=== PATIENT | female | born 1980 | race Caucasian/White ===

== ENCOUNTER → 2016-11-09 | Outpatient (CLI) | payer OTHER ==
[~2016-11-09] MED LIST: BACL10TA2 PO; CALC500T49 OR; CLAR5TAB7 PO; DULO20CA OR; EFFE75CA75 OR; GABA-279 PO; IBUP600T OR; LISI20TA5 OR; MULTIVIT OR; NUCY100T15 PO; NUCY50TA17 PO; PERC5TAB8 PO; SKEL800T5 OR; SM I100T OR; SYMB80AE IN; TESS100C OR; TIZA4CAP PO; TYLENOL PM PO; VALI10TA OR; VALI2TAB PO; VIT D 2000 OR; VITA100T5 OR; VITACAP8 PO; YAZ3TAB2 OR; nicotine gum PO
== END ==
LOC: M PAIN 08:40
PROVIDERS: ATTEND Nurse Practitioner Family
DX: Z09 Encounter for follow-up examination after completed treatment for conditions other than malignant neoplasm (principal); G89.29 Other chronic pain; M53.82 Other specified dorsopathies, cervical region; M79.1 Myalgia; I10 Essential (primary) hypertension; F41.9 Anxiety disorder, unspecified; F32.9 Major depressive disorder, single episode, unspecified; Z79.1 Long term (current) use of non-steroidal anti-inflammatories (NSAID); Z79.891 Long term (current) use of opiate analgesic; Z79.899 Other long term (current) drug therapy; Z91.410 Personal history of adult physical and sexual abuse

== ENCOUNTER → 2016-11-09 | Outpatient (REF) | payer OTHER ==
[2016-11-09 12:07] LABS: MEAN CORPUSCULAR HEMOGLOBIN 28.2 pg (27.0-33.0); MEAN CORPUSCULAR HGB CONC 32.7 g/dl (32.0-36.5); MEAN CORPUSCULAR VOLUME 86.1 fl (80.0-96.0); RED CELL DISTRIBUTION WIDTH 13.1 % (11.5-14.5); WHITE BLOOD COUNT 5.5 K/mm3 (4.0-10.0)
[2016-11-09 12:35] LABS: ALBUMIN 3.9 GM/DL (3.2-5.2); ALBUMIN/GLOBULIN RATIO 1.15 (1.00-1.93); ALKALINE PHOSPHATASE 70 U/L (45-117); ALT/SGPT 16 U/L (12-78); ANION GAP 12 MEQ/L (8-16); AST/SGOT 16 U/L (15-37); BILIRUBIN,TOTAL 0.2 MG/DL (0.2-1.0); BLOOD UREA NITROGEN 9 MG/DL (7-18); CALCIUM LEVEL 9.3 MG/DL (8.5-10.1); CARBON DIOXIDE LEVEL 23 MEQ/L (21-32); CHLORIDE LEVEL 108 MEQ/L (98-107); CREATININE FOR GFR 0.61 MG/DL (0.55-1.02); GLOMERULAR FILTRATION RATE > 60.0 (>60); GLUCOSE, FASTING 79 MG/DL (70-105); SODIUM LEVEL 143 MEQ/L (136-145); TOTAL PROTEIN 7.3 GM/DL (6.4-8.2)
== END ==
LOC: M LABDRAW1 11:29
PROVIDERS: ATTEND Nurse Practitioner Family
DX: L70.0 Acne vulgaris (principal)

== ENCOUNTER → 2017-01-25 | Outpatient (CLI) | payer OTHER ==
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
== END | disposition home or self-care (01) ==
LOC: M PAIN 08:40
PROVIDERS: ATTEND Nurse Practitioner Family
DX: Z09 Encounter for follow-up examination after completed treatment for conditions other than malignant neoplasm (principal); G89.29 Other chronic pain; M53.82 Other specified dorsopathies, cervical region; M79.1 Myalgia; I10 Essential (primary) hypertension; F43.10 Post-traumatic stress disorder, unspecified; F41.9 Anxiety disorder, unspecified; M75.51 Bursitis of right shoulder; M75.52 Bursitis of left shoulder; Z79.899 Other long term (current) drug therapy

== ENCOUNTER → 2017-01-29 | Outpatient (CLI) | payer OTHER ==
--- NOTE | 2017-01-29 11:04 | REP ---
Renal ultrasound and renal artery Doppler ultrasound: Renal artery Doppler ultrasound: Renal vascular ultrasound: Right Kidney: Extraparenchymal renal artery. Peak renal artery flow velocity 179.4 cm per seconds Peak aortic velocity: 87.4 cm/sec Renal/aortic ratio: 2.1 Intraparenchymal renal arteries. Resistive index: upper pole 0.56 mid pole 0.54 lower pole 0.52 Acceleration time: upper pole 0.044 mid pole 0.044 lower pole 0.039 Left kidney: Extraparenchymal renal artery: Peak renal artery flow velocity: 108.9 cm/sec. Peak aortic velocity: 87.4 cm/sec Renal/aortic ratio: 1.2 Intraparenchymal renal arteries: Resistive index: Upper pole 0.58 mid pole 0.54 lower pole 0.50 Acceleration time: Upper pole 0.047 mid pole 0.036 lower pole 0.033 Impression: There is no evidence of renal artery stenosis by Doppler criteria. Renal ultrasound: The kidneys are normal size. The right kidney measures 11.4 x 4.6 of 5.1 cm. Left kidney measures 11.2 x 4.3 x 5.0 cm. Renal cortical echogenicity is normal bilaterally. There is no hydronephrosis, calculus, mass or cyst in the right on the left kidneys. Impression: Normal renal ultrasound. Signed by Rubén Contreras MD 01/29/2017 10:55 A
== END ==
LOC: M RAD 08:48
PROVIDERS: ATTEND Physician Assistant
DX: I10 Essential (primary) hypertension (principal)

== ENCOUNTER → 2017-01-31 | Outpatient (REF) | payer OTHER ==
[2017-02-07 00:07] LABS: DOPAMINE 316 ug/24 hr (0-510); EPINEPHRINE 2 ug/24 hr (0-20); METANEPHRINE URINE 34 ug/24 hr (45-290); NOREPINEPHRINE 75 ug/24 hr (0-135); NOREPINEPHRINE TOTAL URINE 44 ug/L (Undefined); NORMETANEPHRINE URINE 422 ug/24 hr (82-500)
== END ==
LOC: M SFHCPLAZ 16:05
PROVIDERS: ATTEND Physician Assistant
DX: I10 Essential (primary) hypertension (principal)

== ENCOUNTER → 2017-03-01 | Outpatient (REF) | payer OTHER ==
[2017-03-01 16:13] LABS: ALBUMIN 3.6 GM/DL (3.2-5.2); ALBUMIN/GLOBULIN RATIO 0.95 (1.00-1.93); ALKALINE PHOSPHATASE 56 U/L (45-117); ALT/SGPT 20 U/L (12-78); ANION GAP 10 MEQ/L (8-16); AST/SGOT 15 U/L (15-37); BILIRUBIN,TOTAL 0.2 MG/DL (0.2-1.0); BLOOD UREA NITROGEN 14 MG/DL (7-18); CALCIUM LEVEL 8.7 MG/DL (8.5-10.1); CARBON DIOXIDE LEVEL 24 MEQ/L (21-32); CHLORIDE LEVEL 106 MEQ/L (98-107); CREATININE FOR GFR 0.72 MG/DL (0.55-1.02); GLOMERULAR FILTRATION RATE > 60.0 (>60); GLUCOSE, FASTING 90 MG/DL (70-105); POTASSIUM SERUM 4.3 MEQ/L (3.5-5.1); SODIUM LEVEL 140 MEQ/L (136-145); TOTAL PROTEIN 7.4 GM/DL (6.4-8.2)
== END ==
LOC: M LABDRAW1 13:27
PROVIDERS: ATTEND Physician Assistant
DX: I10 Essential (primary) hypertension (principal)

== ENCOUNTER → 2017-04-12 | Outpatient (CLI) | payer OTHER ==
[~2017-04-12] MED LIST changes: +NUCY100T11 PO; -NUCY100T15 PO; +NUCY50TA14 PO; -NUCY50TA17 PO
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
== END | disposition home or self-care (01) ==
LOC: M PAIN 09:20
PROVIDERS: ATTEND Nurse Practitioner Family
DX: G89.29 Other chronic pain (principal); M53.82 Other specified dorsopathies, cervical region; M79.1 Myalgia; F41.9 Anxiety disorder, unspecified; F43.10 Post-traumatic stress disorder, unspecified; I10 Essential (primary) hypertension; Z79.899 Other long term (current) drug therapy

== ENCOUNTER → 2017-06-28 | Outpatient (CLI) | payer OTHER ==
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
== END ==
LOC: M PAIN 09:20
PROVIDERS: ATTEND Nurse Practitioner Family
DX: M53.82 Other specified dorsopathies, cervical region (principal); M79.1 Myalgia; I10 Essential (primary) hypertension; Z79.891 Long term (current) use of opiate analgesic; Z79.899 Other long term (current) drug therapy

== ENCOUNTER → 2017-08-12 | Outpatient (CLI) | payer OTHER ==
[~2017-08-12] MED LIST changes: +BUPIVACAINE HCL 0.25% 30 ML VIAL As Ordered ONE; +ISOVUE-M 300 61% 15ML VIAL (Q9967) As Ordered ONE; +LIDOCAINE 1% SDV INJ 30 ML VIAL As Ordered ONE; +TRIAMCINOLONE ACETONIDE SUSP 40 MG/ML VIAL (J3301) As Ordered ONE; +diazePAM 5 MG TAB As Ordered ONE; +oxyCODONE 5MG TAB As Ordered ONE
--- NOTE | 2017-08-12 15:50 | REP ---
FACET BLOCK: The images were reviewed with Dr. Bazan. The patient has a history of neck pain. The portable C-Arm was provided in the OR for Dr. Ball for fluoroscopic guidance. Two intraoperative last image hold fluoro spot films were obtained for needle placement verification for bilateral cervical facet injection. The films are on the PACs system and are available for review. 15 seconds of fluoroscopy time was utilized for this procedure. Reviewed by JENNIFER Farrell 08/12/2017 05:02 PEdited and Signed by Rubén Bazan MD 08/13/2017 07:30 P
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
== END ==
LOC: M PAIN 08:30
PROVIDERS: ATTEND Anesthesiology
DX: G89.29 Other chronic pain (principal); M47.812 Spondylosis without myelopathy or radiculopathy, cervical region; F41.9 Anxiety disorder, unspecified; F43.10 Post-traumatic stress disorder, unspecified; I10 Essential (primary) hypertension; Z79.1 Long term (current) use of non-steroidal anti-inflammatories (NSAID); Z79.891 Long term (current) use of opiate analgesic; Z79.899 Other long term (current) drug therapy; Z87.891 Personal history of nicotine dependence
CPT/HCPCS: 64490; 64491; J3301; Q9967

== ENCOUNTER → 2017-08-19 | Outpatient (CLI) | payer OTHER ==
[~2017-08-19] MED LIST changes: -BUPIVACAINE HCL 0.25% 30 ML VIAL As Ordered ONE; -ISOVUE-M 300 61% 15ML VIAL (Q9967) As Ordered ONE; -LIDOCAINE 1% SDV INJ 30 ML VIAL As Ordered ONE; -TRIAMCINOLONE ACETONIDE SUSP 40 MG/ML VIAL (J3301) As Ordered ONE; -diazePAM 5 MG TAB As Ordered ONE; -oxyCODONE 5MG TAB As Ordered ONE
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
== END ==
LOC: M PAIN 08:30
PROVIDERS: ATTEND Nurse Practitioner Family
DX: G89.29 Other chronic pain (principal); M53.82 Other specified dorsopathies, cervical region; M79.1 Myalgia; F41.9 Anxiety disorder, unspecified; F43.10 Post-traumatic stress disorder, unspecified; I10 Essential (primary) hypertension; Z79.891 Long term (current) use of opiate analgesic; Z79.899 Other long term (current) drug therapy; Z87.891 Personal history of nicotine dependence

== ENCOUNTER → 2017-09-30 | Outpatient (REF) | payer OTHER ==
[2017-09-30 14:00] LABS: ALBUMIN 3.8 GM/DL (3.2-5.2); ALBUMIN/GLOBULIN RATIO 0.95 (1.00-1.93); ALKALINE PHOSPHATASE 53 U/L (45-117); ALT/SGPT 18 U/L (12-78); ANION GAP 11 MEQ/L (8-16); AST/SGOT 16 U/L (7-37); BILIRUBIN,TOTAL 0.2 MG/DL (0.2-1.0); BLOOD UREA NITROGEN 12 MG/DL (7-18); CALCIUM LEVEL 9.5 MG/DL (8.5-10.1); CARBON DIOXIDE LEVEL 25 MEQ/L (21-32); CHLORIDE LEVEL 101 MEQ/L (98-107); CHOLESTEROL LEVEL 238 MG/DL (<200); CREATININE FOR GFR 0.89 MG/DL (0.55-1.02); FREE T4 0.97 NG/DL (0.76-1.46); GLOMERULAR FILTRATION RATE > 60.0 (>60); GLUCOSE, FASTING 83 MG/DL (70-105); SODIUM LEVEL 137 MEQ/L (136-145); TOTAL PROTEIN 7.8 GM/DL (6.4-8.2); TRIGLYCERIDES LEVEL 217 MG/DL (<150)
== END ==
LOC: M LABDRAW1 09:03
PROVIDERS: ATTEND Nurse Practitioner Family
DX: F41.9 Anxiety disorder, unspecified (principal); I10 Essential (primary) hypertension

== ENCOUNTER → 2017-10-10 | Outpatient (CLI) | payer OTHER | LOC: M PAIN 09:00 | DX: M53.82 Other specified dorsopathies, cervical region (principal); M79.1 Myalgia; I10 Essential (primary) hypertension; F41.9 Anxiety disorder, unspecified; E55.9 Vitamin D deficiency, unspecified; Z79.891 Long term (current) use of opiate analgesic; Z79.899 Other long term (current) drug therapy; Z87.891 Personal history of nicotine dependence | CPT/HCPCS: G0463 ==

== ENCOUNTER → 2017-12-11 | Outpatient (CLI) | payer OTHER ==
[~2017-12-11] MED LIST changes: -BACL10TA2 PO; +BUPIVACAINE HCL 0.25% 30 ML VIAL As Ordered; -CALC500T49 OR; -CLAR5TAB7 PO; -DULO20CA OR; -EFFE75CA75 OR; -GABA-279 PO; -IBUP600T OR; +ISOVUE-M 300 61% 15ML VIAL (Q9967) As Ordered; +LIDOCAINE 1% SDV INJ 30 ML VIAL As Ordered; -LISI20TA5 OR; -MULTIVIT OR; -NUCY100T11 PO; -NUCY50TA14 PO; -PERC5TAB8 PO; -SKEL800T5 OR; -SM I100T OR; -SYMB80AE IN; -TESS100C OR; -TIZA4CAP PO; +TRIAMCINOLONE ACETONIDE SUSP 40 MG/ML VIAL (J3301) As Ordered; -TYLENOL PM PO; -VALI10TA OR; -VALI2TAB PO; -VIT D 2000 OR; -VITA100T5 OR; -VITACAP8 PO; -YAZ3TAB2 OR; +diazePAM 5 MG TAB As Ordered; -nicotine gum PO; +oxyCODONE 5MG TAB As Ordered
== END ==
LOC: M PAIN 08:30
DX: G89.29 Other chronic pain (principal); M47.812 Spondylosis without myelopathy or radiculopathy, cervical region; F43.10 Post-traumatic stress disorder, unspecified; F41.9 Anxiety disorder, unspecified; I10 Essential (primary) hypertension; Z79.891 Long term (current) use of opiate analgesic; Z79.899 Other long term (current) drug therapy; Z87.891 Personal history of nicotine dependence
CPT/HCPCS: J3301

== ENCOUNTER → 2017-12-30 | Outpatient (CLI) | payer OTHER | LOC: M PAIN 08:45 | DX: M53.82 Other specified dorsopathies, cervical region (principal); M79.1 Myalgia; M54.2 Cervicalgia; F41.9 Anxiety disorder, unspecified; I10 Essential (primary) hypertension; F43.10 Post-traumatic stress disorder, unspecified; Z79.891 Long term (current) use of opiate analgesic; Z79.899 Other long term (current) drug therapy; Z87.891 Personal history of nicotine dependence | CPT/HCPCS: G0463 ==

== ENCOUNTER → 2018-03-21 | Outpatient (CLI) | payer SELFPAY | LOC: M PAIN 13:30 | DX: M53.82 Other specified dorsopathies, cervical region (principal); M79.1 Myalgia; M54.2 Cervicalgia; I10 Essential (primary) hypertension; E55.9 Vitamin D deficiency, unspecified; F41.9 Anxiety disorder, unspecified; F43.10 Post-traumatic stress disorder, unspecified; Z79.891 Long term (current) use of opiate analgesic; Z79.899 Other long term (current) drug therapy; Z87.891 Personal history of nicotine dependence | CPT/HCPCS: G0463 ==

== ENCOUNTER → 2018-11-17 | Outpatient (CLI) | payer SELFPAY ==
[~2018-11-17] MED LIST changes: +BACL10TA2 PO; -BUPIVACAINE HCL 0.25% 30 ML VIAL As Ordered; +CALC500T49 OR; +CLAR5TAB7 PO; +DULO20CA OR; +EFFE75CA75 OR; +GABA-1171 PO; +IBUP600T OR; -ISOVUE-M 300 61% 15ML VIAL (Q9967) As Ordered; -LIDOCAINE 1% SDV INJ 30 ML VIAL As Ordered; +LISI20TA5 OR; +MULTIVIT OR; +NUCY100T11 PO; +NUCY50TA14 PO; +PERC5TAB8 PO; +SKEL800T5 OR; +SM I100T OR; +SYMB80AE IN; +TESS100C OR; +TIZA4CAP PO; -TRIAMCINOLONE ACETONIDE SUSP 40 MG/ML VIAL (J3301) As Ordered; +TYLENOL PM PO; +VALI10TA OR; +VALI2TAB PO; +VIT D 2000 OR; +VITA100T5 OR; +VITACAP8 PO; +YAZ3TAB2 OR; -diazePAM 5 MG TAB As Ordered; +nicotine gum PO; -oxyCODONE 5MG TAB As Ordered
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
== END ==
LOC: M PAIN 08:30
PROVIDERS: ATTEND Nurse Practitioner Family
DX: M53.82 Other specified dorsopathies, cervical region (principal); M79.10 Myalgia, unspecified site; I10 Essential (primary) hypertension; F41.9 Anxiety disorder, unspecified; F43.10 Post-traumatic stress disorder, unspecified; E55.9 Vitamin D deficiency, unspecified; Z79.891 Long term (current) use of opiate analgesic; Z79.899 Other long term (current) drug therapy; Z87.891 Personal history of nicotine dependence

== ENCOUNTER → 2019-01-15 | Outpatient (CLI) | payer SELFPAY ==
[~2019-01-15] MED LIST changes: +CYMB1CAP4 OR; -DULO20CA OR
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
== END ==
LOC: M PAIN 08:45
PROVIDERS: ATTEND Nurse Practitioner Family
DX: M25.562 Pain in left knee (principal); M54.2 Cervicalgia; G89.29 Other chronic pain; Z86.59 Personal history of other mental and behavioral disorders; I10 Essential (primary) hypertension; E55.9 Vitamin D deficiency, unspecified; Z87.891 Personal history of nicotine dependence; Z79.891 Long term (current) use of opiate analgesic; Z79.899 Other long term (current) drug therapy

== ENCOUNTER → 2019-06-11 | Outpatient (CLI) | payer SELFPAY ==
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
== END ==
LOC: M PAIN 08:45
PROVIDERS: ATTEND Nurse Practitioner Family
DX: M47.812 Spondylosis without myelopathy or radiculopathy, cervical region (principal); G89.29 Other chronic pain; Z86.59 Personal history of other mental and behavioral disorders; I10 Essential (primary) hypertension; E55.9 Vitamin D deficiency, unspecified; Z87.891 Personal history of nicotine dependence; Z79.891 Long term (current) use of opiate analgesic; Z79.899 Other long term (current) drug therapy

== ENCOUNTER → 2019-07-23 | Outpatient (CLI) | payer SELFPAY | LOC: M PAIN 10:15 | PROVIDERS: ATTEND Nurse Practitioner Family | DX: M47.812 Spondylosis without myelopathy or radiculopathy, cervical region (principal); G89.29 Other chronic pain; Z86.59 Personal history of other mental and behavioral disorders; I10 Essential (primary) hypertension; E55.9 Vitamin D deficiency, unspecified; Z87.891 Personal history of nicotine dependence; Z79.891 Long term (current) use of opiate analgesic; Z79.899 Other long term (current) drug therapy ==

== ENCOUNTER → 2019-09-03 | Outpatient (CLI) | payer SELFPAY ==
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
== END ==
LOC: M PAIN 09:00
PROVIDERS: ATTEND Nurse Practitioner Family
DX: M47.812 Spondylosis without myelopathy or radiculopathy, cervical region (principal)

== ENCOUNTER 2019-10-19 12:19 | Emergency (ER) | payer SELFPAY ==
[~2019-10-19] VITALS: Ht 162.6 cm; Wt 62.2 kg
[2019-10-19] MEDS ORDERED: MORP-69 (12:57)
[2019-10-19 13:45] LABS: INFLUENZA A AMPLIFICATION NEGATIVE (NEGATIVE); INFLUENZA B AMPLIFICATION NEGATIVE (NEGATIVE)
--- NOTE | 2019-10-19 14:40 | REP ---
CHEST, TWO VIEWS: Two views of the chest are performed. There are no prior studies. Dense consolidation is seen medially in the right lower lobe. This probably represents pneumonic infiltrate. Left lung is clear. The heart is normal in size. IMPRESSION: Consolidation right lower lobe most consistent with pneumonia. Recommend followup to resolution. Electronically Signed by Rubén Bazan MD 10/19/2019 02:52 P
[2019-10-19 14:53] LABS: HEMATOCRIT 37.5 % (36.0-47.0); HEMOGLOBIN 12.1 g/dl (12.0-15.5); MEAN CORPUSCULAR HEMOGLOBIN 31.7 pg (27.0-33.0); MEAN CORPUSCULAR HGB CONC 32.3 g/dl (32.0-36.5); MEAN CORPUSCULAR VOLUME 98.2 fl (80.0-96.0); PLATELET COUNT, AUTOMATED 304 10^3/uL (150-450); RED BLOOD COUNT 3.82 10^6/uL (4.00-5.40); WHITE BLOOD COUNT 20.8 10^3/uL (4.0-10.0)
[2019-10-19 15:17] LABS: ALBUMIN 2.7 GM/DL (3.2-5.2); ALT/SGPT 14 U/L (12-78); AMYLASE 7 U/L (25-115); BILIRUBIN,DIRECT 0.2 MG/DL (0.0-0.2); BILIRUBIN,TOTAL 0.5 MG/DL (0.2-1.0); BLOOD UREA NITROGEN 7 MG/DL (7-18); CALCIUM LEVEL 8.5 MG/DL (8.5-10.1); CARBON DIOXIDE LEVEL 23 MEQ/L (21-32); CHLORIDE LEVEL 104 MEQ/L (98-107); CK-MB VALUE MASS 2.7 NG/ML (<3.6); CPK CREATINE PHOSPHOKINASE 64 U/L (26-192); CREATININE FOR GFR 0.78 MG/DL (0.55-1.30); GLOMERULAR FILTRATION RATE > 60.0 (>58); GLUCOSE, FASTING 106 MG/DL (70-100); LIPASE 53 U/L (73-393); MB/CK RELATIVE INDEX 4.22 (< OR =4); POTASSIUM SERUM 3.6 MEQ/L (3.5-5.1); SODIUM LEVEL 138 MEQ/L (136-145); TOTAL PROTEIN 6.7 GM/DL (6.4-8.2); TROPONIN I < 0.02 NG/ML (< 0.10)
[2019-10-19 15:19] LABS: BASOPHILS 1 % (0-1); LYMPHOCYTES 12 % (16-44); MONOCYTES 8 % (0-5); NEUTROPHILS 79 % (28-66); PLATELET ESTIMATE NORMAL (NORMAL)
[2019-10-19] MEDS ORDERED: ISOVUE-370 76% 100ML VIAL (Q9967) As Ordered ONE ×2 (16:19→17:25)
--- NOTE | 2019-10-19 17:17 | REP ---
Clinical: Contrast infiltration. Technique: Two views of the left elbow. Findings: Intravenous CT contrast material infiltrates the subcutaneous tissues overlying the elbow and humerus. Impression: Intravenous contrast material infiltrates is subcutaneous tissues. Electronically Signed by Tang Castañeda MD 10/19/2019 05:08 P
--- NOTE | 2019-10-19 18:27 | REPVR ---
PROCEDURE INFORMATION: Exam: CT Angiography Chest With Contrast Exam date and time: 10/19/2019 3:56 PM Age: 39 years old Clinical indication: Shortness of breath; Chest pain; Additional info: D dimer 3843.78, reporting chest pain/sob TECHNIQUE: Imaging protocol: Computed tomographic angiography of the chest with intravenous contrast. 3D rendering: MIP and/or 3D reconstructed images were created by the technologist. Radiation optimization: All CT scans at this facility use at least one of these dose optimization techniques: automated exposure control; mA and/or kV adjustment per patient size (includes targeted exams where dose is matched to clinical indication); or iterative reconstruction. Contrast material: ISOVUE 370; Contrast volume: 150 ml; Contrast route: IV; COMPARISON: CR Chest, 2 view PA, Lat 10/19/2019 2:21 PM FINDINGS: Pulmonary arteries: No focal pulmonary artery filling defect to suggest acute pulmonary embolus. Aorta: No thoracic aortic aneurysm or dissection. Lungs: Confluent airspace filling process involving the right lower lobe without central endobronchial lesion. No concerning focal parenchymal lung lesion. Pleural space: Small dependent right pleural effusion. No pneumothorax Mediastinum: Residual thymic tissue is present in the anterior mediastinum. Liver: Small 6 mm anterior right lobe hepatic cyst, incidental. Lymph nodes: Small mediastinal and right hilar lymph nodes are present. These are difficult to measure because of contrast bolus timing. Bones/joints: Bony structures show no acute fracture or destructive process. Soft tissues: Unremarkable. IMPRESSION: 1. No evidence of acute pulmonary embolus. 2. Confluent airspace filling process in the left lower lobe suggesting pneumonia with reactive lymphadenopathy. Followup after treatment is recommended to document resolution Electronically signed by: Zay Hogan On 10/19/2019 18:26:43 PM
[2019-10-19] MEDS ORDERED: LevoFLOXacin IV 750 MG in IV 1 EA IV ONE (19:00)
--- NOTE | 2019-10-19 19:50 | ECGEPIP ---
[facility] - ED Test Date: 2019-10-19 Pat Name: BANDAR HORVATH Department: Room: - Gender: Female [employer]: : [id number] Requested By: Lisa Bangura Order Number: [id number] Reading MD: Sumit Jones Measurements Intervals [place] Rate: 110 P: 79 MN: 131 QRS: -12 QRSD: 96 T: 72 QT: 355 QTc: 481 Interpretive Statements SINUS TACHYCARDIA LEFT ATRIAL ENLARGEMENT INCOMPLETE RIGHT BUNDLE BRANCH BLOCK NONSPECIFIC T-WAVE ABNORMALITY NO PRIORS FOR COMPARISON Electronically Signed on 10-19-2019 19:50:02 EST by Sumit Jones
[2019-10-19] MEDS ORDERED: LEVA750T7 PO (20:26)
[2019-10-19 20:50] VITALS: BP 168/110
--- NOTE | 2019-10-20 12:06 | CR ---
DATE OF CONSULTATION: 10/19/2019 CHIEF COMPLAINT: Left arm swelling. This is a pleasant 39-year-old female that came to the emergency room (ER) for evaluation of chest pain and cough. During the ER evaluation, they ordered CT angiogram for evaluation for pulmonary embolism. Unfortunately, there is contrast extravasation in the left arm. Therefore, I was consulted to rule out compartment syndrome. The patient states that she has no pain in the arm. She does say there is some swelling. The skin is intact. Denies any fevers, chills, nausea or vomiting as a result of the contrast. Denies any numbness or tingling. Complete 10-system review is conducted, pertinent positives and negatives in the history of present illness (HPI). All other systems negative. PHYSICAL EXAMINATION: The patient is awake, alert, and oriented, well-dressed, appropriate affect, breathing normally on room air. Normocephalic, atraumatic. Left upper arm examination: No tenderness to palpation. Full active range of motion of the shoulder, wrist, and elbow without any pain or discomfort. Skin is intact. Radial pulse 2+, regular rate. Sensation intact to light touch, superficial sensory branches of the radial nerve, median nerve, and ulnar nerve. Positive anterior interosseous nerve (AIN), posterior interosseous nerve (PIN), and ulnar motor nerve functions. Full range of motion of the elbow both passive and active without any pain. Mild swelling in the anterior arm. IMAGING: Reviewed. Left elbow demonstrates no acute fracture or dislocation, however, significant contrast extravasation on the x-ray in the anterior arm. DIAGNOSIS: Left arm contrast extravasation. I discussed with the patient that at this point I am not all concerned for compartment syndrome. There should be no deleterious effects from this. At this time, they may resume normal activity without any restrictions with regard to the left arm. She does not require orthopedic followup.
--- NOTE | 2019-10-21 07:36 | ED PDOC ---
Post-Departure Follow-Up jeffery henry faxed formal report of cta chest for fu Lisa Castillo MD Oct 21, 2019 07:36
== END 2019-10-19 20:53 | disposition home or self-care (01) ==
LOC: M ED 12:19
DX: J18.1 Lobar pneumonia, unspecified organism (principal); T80.818A Extravasation of other vesicant agent, initial encounter; X58.XXXA Exposure to other specified factors, initial encounter; Y92.89 Other specified places as the place of occurrence of the external cause; I10 Essential (primary) hypertension; M79.7 Fibromyalgia; Z79.899 Other long term (current) drug therapy
CPT/HCPCS: 71046; 71275; 73070; 80048; 80076; 82150; 82550; 82553; 83690; 84484; 85025; 85379; 87502; 93005; 96365; 96366; 99284; J1956; Q9967

== ENCOUNTER → 2019-11-03 | Outpatient (CLI) | payer BC ==
[~2019-11-03] MED LIST changes: +LEVA750T7 PO; +MORP-69
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
== END ==
LOC: M PAIN 08:45
PROVIDERS: ATTEND Nurse Practitioner Family
DX: M79.18 Myalgia, other site (principal); Z86.59 Personal history of other mental and behavioral disorders; I10 Essential (primary) hypertension; E55.9 Vitamin D deficiency, unspecified; Z87.891 Personal history of nicotine dependence; Z79.891 Long term (current) use of opiate analgesic; Z79.899 Other long term (current) drug therapy

== ENCOUNTER → 2019-12-03 | Outpatient (CLI) | payer BC ==
--- NOTE | 2019-12-03 18:57 | REP ---
PA and lateral chest: Comparison is 10/19/2019. The previous right lower lobe infiltrate has resolved. The lung shin are clear. The cardiac size is normal. The hilda, mediastinum, and skeletal structures are unremarkable. Impression: Negative PA and lateral chest. Electronically Signed by Rubén Contreras MD 12/03/2019 06:48 P
== END ==
LOC: M RAD 17:23
PROVIDERS: ATTEND Nurse Practitioner Family
DX: J18.9 Pneumonia, unspecified organism (principal)

== ENCOUNTER → 2019-12-08 | Outpatient (REF) | payer BC ==
[2019-12-08 13:50] LABS: BASO % 0.8 % (0.0-1.0); EOS # 0.4 10^3/uL (0.0-0.5); HEMATOCRIT 36.2 % (36.0-47.0); HEMOGLOBIN 11.7 g/dl (12.0-15.5); LYMPH # 1.7 10^3/uL (1.5-5.0); LYMPH % 33.8 % (24.0-44.0); MEAN CORPUSCULAR HEMOGLOBIN 31.9 pg (27.0-33.0); MEAN CORPUSCULAR HGB CONC 32.3 g/dl (32.0-36.5); MEAN CORPUSCULAR VOLUME 98.6 fl (80.0-96.0); MONO # 0.3 10^3/uL (0.0-0.8); MONO % 6.6 % (0.0-5.0); NEUTROPHILS # 2.5 10^3/uL (1.5-8.5); NEUTROPHILS % 50.6 % (36.0-66.0); PLATELET COUNT, AUTOMATED 366 10^3/uL (150-450); RED BLOOD COUNT 3.67 10^6/uL (4.00-5.40); WHITE BLOOD COUNT 4.9 10^3/uL (4.0-10.0)
[2019-12-08 14:16] LABS: ALBUMIN 3.7 GM/DL (3.2-5.2); ALT/SGPT 24 U/L (12-78); BILIRUBIN,TOTAL 0.5 MG/DL (0.2-1.0); BLOOD UREA NITROGEN 12 MG/DL (7-18); CALCIUM LEVEL 9.2 MG/DL (8.5-10.1); CARBON DIOXIDE LEVEL 32 MEQ/L (21-32); CHLORIDE LEVEL 99 MEQ/L (98-107); CHOLESTEROL LEVEL 193 MG/DL (<200); CHOLESTEROL RISK RATIO 2.506 (<5); CREATININE FOR GFR 0.84 MG/DL (0.55-1.30); FREE T4 0.85 NG/DL (0.76-1.46); GLOMERULAR FILTRATION RATE > 60.0 (>58); GLUCOSE, FASTING 84 MG/DL (70-100); HDL CHOLESTEROL 77 MG/DL (>40); LDL CHOLESTEROL 97 MG/DL (<100); NON-HDL-C 116 MG/DL; POTASSIUM SERUM 4.6 MEQ/L (3.5-5.1); SODIUM LEVEL 136 MEQ/L (136-145); THYROID STIMULATING HORMONE 0.579 uIU/ML (0.358-3.740); TOTAL PROTEIN 6.9 GM/DL (6.4-8.2); TRIGLYCERIDES LEVEL 93 MG/DL (<150)
== END ==
LOC: M LABDRAW1 12:30
PROVIDERS: ATTEND Nurse Practitioner Family
DX: J18.9 Pneumonia, unspecified organism (principal); I10 Essential (primary) hypertension; E55.9 Vitamin D deficiency, unspecified; F41.9 Anxiety disorder, unspecified

== ENCOUNTER → 2019-12-10 | Outpatient (CLI) | payer BC ==
[~2019-12-10] MED LIST changes: +BUPIVACAINE HCL 0.25% 30 ML VIAL As Ordered ONE; +NORCO, ANEXSIA 5/325MG TABLET (HYDROcodone/ACETAMINOPHEN) As Ordered ONE; +TRIAMCINOLONE ACETONIDE SUSP 40 MG/ML VIAL (J3301) As Ordered ONE; +diazePAM 5 MG TAB As Ordered ONE
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
== END ==
LOC: M PAIN 08:45
PROVIDERS: ATTEND Anesthesiology
DX: M79.18 Myalgia, other site (principal)
CPT/HCPCS: 20552; J3301

== ENCOUNTER → 2019-12-31 | Outpatient (CLI) | payer BC ==
[~2019-12-31] MED LIST changes: -BUPIVACAINE HCL 0.25% 30 ML VIAL As Ordered ONE; -NORCO, ANEXSIA 5/325MG TABLET (HYDROcodone/ACETAMINOPHEN) As Ordered ONE; -TRIAMCINOLONE ACETONIDE SUSP 40 MG/ML VIAL (J3301) As Ordered ONE; -diazePAM 5 MG TAB As Ordered ONE
== END ==
LOC: M PAIN 08:45
PROVIDERS: ATTEND Nurse Practitioner Family
DX: M53.82 Other specified dorsopathies, cervical region (principal); M79.12 Myalgia of auxiliary muscles, head and neck; Z86.59 Personal history of other mental and behavioral disorders; I10 Essential (primary) hypertension; E55.9 Vitamin D deficiency, unspecified; Z87.891 Personal history of nicotine dependence; Z79.891 Long term (current) use of opiate analgesic; Z79.899 Other long term (current) drug therapy

== ENCOUNTER → 2020-01-07 | Outpatient (REF) | payer BC ==
[2020-01-07 17:46] LABS: BLOOD UREA NITROGEN 25 MG/DL (7-18); CALCIUM LEVEL 9.2 MG/DL (8.5-10.1); CARBON DIOXIDE LEVEL 27 MEQ/L (21-32); CHLORIDE LEVEL 94 MEQ/L (98-107); CREATININE FOR GFR 0.99 MG/DL (0.55-1.30); GLOMERULAR FILTRATION RATE > 60.0 (>58); GLUCOSE, FASTING 85 MG/DL (70-100); POTASSIUM SERUM 4.1 MEQ/L (3.5-5.1); SODIUM LEVEL 130 MEQ/L (136-145)
== END ==
LOC: M SFHCPLAZ 14:59
PROVIDERS: ATTEND Nurse Practitioner Family
DX: I10 Essential (primary) hypertension (principal)

== ENCOUNTER → 2020-01-09 | Outpatient (CLI) | payer BC ==
--- NOTE | 2020-01-09 12:23 | REPVR ---
PROCEDURE INFORMATION: Exam: MR Cervical Spine Without Contrast Exam date and time: 01/09/2020 11:12 AM Age: 39 years old Clinical indication: Patient HX: Neck pain and spasms; Additional info: Myalgia of muscle of neck TECHNIQUE: Imaging protocol: Multiplanar magnetic resonance images of the cervical spine without contrast. COMPARISON: MRI-Spine,Cervical without con 12/11/2014 10:36 AM FINDINGS: Vertebrae: Reversal of the normal cervical curvature centered at the C5-C6 level. The mild grade 1 anterolisthesis at C4-C5.The vertebral body heights fairly well maintained. Old Schmorl's nodes along the superior endplate of C6 and C7. No acute compression fracture. Spinal cord: Preservation of cord course, caliber and signal intensity. C2-C3: There is no disc herniation,spinal stenosis,or nerve root impingement. C3-C4: There is no disc herniation, central canal stenosis. Left foraminal stenosis secondary to uncovertebral degenerative change and facet degenerative change. The left C4 root not as well seen as the right C4 root. C4-C5: Mild grade 1 anterolisthesis. Broad bulging/uncovering of the disc. A faint CSF space remains about a normal size cord. There is uncovertebral degenerative change greater on the right. There is severe right foraminal encroachment. The right C5 root is not as well demonstrated as the left C5 root. C5-C6: Disc desiccation with anterior endplate spurring. Broad annular bulging. A faint CSF space remains about the cord. There is uncovertebral degenerative change greater on the right. There is right greater than left moderate to severe neural foraminal stenosis. The right exiting C6 roots not well demonstrated. C6-C7: Disc desiccation with anterior endplate spurring. Annular bulging. A CSF space remains about the cord. Uncovertebral degenerative change on the right with right foraminal stenosis. The right C7 root is not as well seen as the left C7 root. C7-T1: There is no disc herniation,spinal stenosis,or nerve root impingement. Vertebral arteries: Expected flow voids in the vertebral arteries. Soft tissues: No prevertebral soft tissue swelling. IMPRESSION: 1. Degenerative changes most prominent at C4-C5 C5-C6 and C6-C7 progressed since previous study. There is reversal of the cervical curvature centered at C5-C6 and new grade 1 anterolisthesis at C4-C5. 2. At C3-C4, left foraminal stenosis. The left C4 root not as well seen as the right C4 root. 3. At C4-C5, mild grade 1 anterolisthesis. There is severe right foraminal encroachment. The right C5 root is not as well demonstrated as the left C5 root. 4. At C5-C6, broad annular bulging. A faint CSF space remains about the cord. There is right greater than left moderate to severe neural foraminal stenosis. The right exiting C6 roots not well demonstrated. 5. At C6-C7, right foraminal stenosis. The right C7 root is not as well seen as the left C7 root. Electronically signed by: Tang Padgett On 01/09/2020 12:23:17 PM
== END ==
LOC: M RAD 10:29
PROVIDERS: ATTEND Nurse Practitioner Family
DX: M79.7 Fibromyalgia (principal)

== ENCOUNTER → 2020-02-12 | Outpatient (CLI) | payer BC ==
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
== END ==
LOC: M TMPAIN 08:45 → M PAIN 08:45
PROVIDERS: ATTEND Nurse Practitioner Family
DX: M53.82 Other specified dorsopathies, cervical region (principal); M47.812 Spondylosis without myelopathy or radiculopathy, cervical region; I10 Essential (primary) hypertension; Z79.891 Long term (current) use of opiate analgesic; Z79.899 Other long term (current) drug therapy; Z87.891 Personal history of nicotine dependence

== ENCOUNTER → 2020-04-09 | Outpatient (CLI) | payer BC | LOC: M LABSMTC 11:01 | PROVIDERS: ATTEND Anesthesiology | DX: Z01.818 Encounter for other preprocedural examination (principal); Z11.59 Encounter for screening for other viral diseases | CPT/HCPCS: C9803; U0003 ==

== ENCOUNTER → 2020-04-12 | Outpatient (CLI) | payer BC ==
[~2020-04-12] MED LIST changes: +BUPIVACAINE HCL 0.25% 30ML VIAL As Ordered ONE; +ISOVUE-M 300 61% 15ML VIAL As Ordered ONE; +LIDOCAINE 1% SDV 30ML VIAL As Ordered ONE; +TRIAMCINOLONE ACETONIDE SUSP 40 MG/ML VIAL (J3301) As Ordered ONE; +diazePAM 5 MG TAB As Ordered ONE; +oxyCODONE 5MG TAB As Ordered ONE
--- NOTE | 2020-04-12 10:52 | REP ---
Clinical: Facet block. Technique: Fluoroscopic evaluation using portable C-arm technique. Findings: Single AP view of the cervical spine demonstrates catheters overlying the bilateral cervical facets at multiple levels along with injected contrast material. Total fluoroscopic time 13 seconds (0.027 mGy) Impression: Cervical facet block. Electronically Signed by Tang Castañeda MD 04/12/2020 10:43 A
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
== END ==
LOC: M PAIN 09:00
PROVIDERS: ATTEND Anesthesiology
DX: M47.812 Spondylosis without myelopathy or radiculopathy, cervical region (principal); M53.82 Other specified dorsopathies, cervical region
CPT/HCPCS: 64490; 64491; J3301; Q9967

== ENCOUNTER → 2020-04-27 | Outpatient (CLI) | payer BC ==
[~2020-04-27] MED LIST changes: -BUPIVACAINE HCL 0.25% 30ML VIAL As Ordered ONE; -ISOVUE-M 300 61% 15ML VIAL As Ordered ONE; -LIDOCAINE 1% SDV 30ML VIAL As Ordered ONE; -TRIAMCINOLONE ACETONIDE SUSP 40 MG/ML VIAL (J3301) As Ordered ONE; -diazePAM 5 MG TAB As Ordered ONE; -oxyCODONE 5MG TAB As Ordered ONE
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
== END ==
LOC: M PAIN 10:15
PROVIDERS: ATTEND Nurse Practitioner Family
DX: M47.812 Spondylosis without myelopathy or radiculopathy, cervical region (principal); M53.82 Other specified dorsopathies, cervical region

== ENCOUNTER → 2020-05-05 | Outpatient (REF) | payer BC ==
[~2020-05-05] MED LIST changes: +BISO5TAB14; +CHLO125TA; +METH750T2; +SPIR-10
[2020-05-05 17:32] LABS: CALCIUM LEVEL 9.6 MG/DL (8.5-10.1); CREATININE FOR GFR 1.72 MG/DL (0.55-1.30); GLOMERULAR FILTRATION RATE 34.8 (>58); POTASSIUM SERUM 5.3 MEQ/L (3.5-5.1)
== END ==
LOC: M PLALAB 14:37
PROVIDERS: ATTEND Nurse Practitioner Family
DX: I10 Essential (primary) hypertension (principal)

== ENCOUNTER → 2020-05-18 | Outpatient (REF) | payer BC ==
[2020-05-18 19:46] LABS: CALCIUM LEVEL 9.3 MG/DL (8.5-10.1); CREATININE FOR GFR 1.29 MG/DL (0.55-1.30); GLOMERULAR FILTRATION RATE 48.5 (>58); POTASSIUM SERUM 4.4 MEQ/L (3.5-5.1)
== END ==
LOC: M PLALAB 15:07
PROVIDERS: ATTEND Nurse Practitioner Family
DX: E87.8 Other disorders of electrolyte and fluid balance, not elsewhere classified (principal)

== ENCOUNTER → 2020-06-08 | Outpatient (POV) | payer BC | LOC: M PAIN 09:00 | PROVIDERS: ATTEND Nurse Practitioner Family | DX: M47.812 Spondylosis without myelopathy or radiculopathy, cervical region (principal) ==

== ENCOUNTER → 2020-06-20 | Outpatient (CLI) | payer BC ==
[~2020-06-20] MED LIST changes: +BUPIVACAINE HCL 0.25% 30ML VIAL As Ordered ONE; +ISOVUE-M 300 61% 15ML VIAL As Ordered ONE; +LIDOCAINE 1% SDV 30ML VIAL As Ordered ONE; +TRIAMCINOLONE ACETONIDE SUSP 40 MG/ML VIAL (J3301) As Ordered ONE; +diazePAM 5 MG TAB As Ordered ONE; +oxyCODONE 5MG TAB As Ordered ONE
--- NOTE | 2020-07-22 07:29 | REP ---
FACET BLOCK The images were reviewed with Dr. De La Cruz. The portable C-arm was provided in the ER for Dr. Ball for fluoroscopic guidance. Two intraoperative pleural spot films were obtained using last image hold for needle placement verification for bilateral cervical facet injection. The films are on the PACS systems and are available for review. 9 seconds of fluoroscopy time was utilized for this procedure. CRYSTAL
== END ==
LOC: M PAIN 10:08
PROVIDERS: ATTEND Anesthesiology
DX: M47.812 Spondylosis without myelopathy or radiculopathy, cervical region (principal)
CPT/HCPCS: 64490; 64491; 77002; J3301; Q9967

== ENCOUNTER 2020-07-03 19:11 | Emergency (ER) | payer BC ==
[~2020-07-03] VITALS: Ht 162.6 cm; Wt 62.0 kg
[~2020-07-03 19:11] MED LIST changes: -BISO5TAB14; -BUPIVACAINE HCL 0.25% 30ML VIAL As Ordered ONE; -CHLO125TA; -ISOVUE-M 300 61% 15ML VIAL As Ordered ONE; -LIDOCAINE 1% SDV 30ML VIAL As Ordered ONE; -METH750T2; -SPIR-10; -TRIAMCINOLONE ACETONIDE SUSP 40 MG/ML VIAL (J3301) As Ordered ONE; -diazePAM 5 MG TAB As Ordered ONE; -oxyCODONE 5MG TAB As Ordered ONE
[2020-07-03] MEDS ORDERED: BISO5TAB14 (19:27)
[2020-07-03] MEDS ORDERED: SPIR-10 (19:27)
[2020-07-03] MEDS ORDERED: METH750T2 (19:27)
[2020-07-03] MEDS ORDERED: CHLO125TA (19:27)
--- NOTE | 2020-07-03 20:12 | REPVR ---
PROCEDURE INFORMATION: Exam: CT Head Without Contrast Exam date and time: 07/03/2020 7:47 PM Age: 40 years old Clinical indication: Pain; Headache not specified; Additional info: H/a TECHNIQUE: Imaging protocol: Computed tomography of the head without contrast. Radiation optimization: All CT scans at this facility use at least one of these dose optimization techniques: automated exposure control; mA and/or kV adjustment per patient size (includes targeted exams where dose is matched to clinical indication); or iterative reconstruction. COMPARISON: No relevant prior studies available. FINDINGS: Brain: Unremarkable. No hemorrhage. No significant white matter disease. No edema. Ventricles: Unremarkable. No ventriculomegaly. Bones/joints: Unremarkable. No acute fracture. Sinuses: Visualized sinuses are unremarkable. No fluid levels. Mastoid air cells: Visualized mastoid air cells are well aerated. Soft tissues: Unremarkable. IMPRESSION: No acute abnormality. Electronically signed by: Anuj Amaya On 07/03/2020 20:12:17 PM
[2020-07-03] MEDS ORDERED: NS 1,000 ML IV ONE (20:15)
[2020-07-03] MEDS ORDERED: diphenhydrAMINE 50MG/ML VIAL (J1200) IV ONE (20:15)
[2020-07-03] MEDS ORDERED: KETOROLAC 30 MG/ML 1ML VIAL IV ONE (20:15)
[2020-07-03] MEDS ORDERED: ONDANSETRON 4MG/2ML VIAL IV ONE (20:15)
--- NOTE | 2020-07-03 20:50 | REPVR ---
PROCEDURE INFORMATION: Exam: CT Cervical Spine Without Contrast Exam date and time: 07/03/2020 8:18 PM Age: 40 years old Clinical indication: Neck pain; Additional info: Neck pain/headache TECHNIQUE: Imaging protocol: Computed tomography images of the cervical spine without contrast. Radiation optimization: All CT scans at this facility use at least one of these dose optimization techniques: automated exposure control; mA and/or kV adjustment per patient size (includes targeted exams where dose is matched to clinical indication); or iterative reconstruction. COMPARISON: MRI-Spine,Cervical without con 01/09/2020 10:54 AM FINDINGS: Vertebrae: Loss of normal cervical lordosis with straightening of the cervical spine, likely secondary to splinting and/or patient positioning. Grade 1 anterolisthesis of C4, unchanged. No fracture. Discs/Spinal canal/Neural foramina: Degenerative disc disease and facet arthrosis throughout the cervical spine, most severe at C4-C5, C5-C6 and C6-C7. Mild neural foraminal bony encroachment on the left at C3-C4, bilaterally at C4-C5, bilaterally at C5-C6 and on the left at C6-C7. Moderate neural foraminal bony encroachment on the right at C6-C7. No bony spinal stenosis. Soft tissues: Unremarkable. Lungs: Bilateral apical scar. IMPRESSION: 1. Degenerative disc disease and facet arthritis throughout the cervical spine. 2. Grade 1 anterolisthesis of C4, unchanged. 3. No acute fracture. Electronically signed by: Anuj Amaya On 07/03/2020 20:50:25 PM
[2020-07-03 21:50] LABS: BASO % 0.2 % (0.0-1.0); EOS # 0.2 10^3/uL (0.0-0.5); EOS % 1.6 % (0.0-3.0); HEMATOCRIT 36.8 % (36.0-47.0); HEMOGLOBIN 11.9 g/dl (12.0-15.5); LYMPH # 2.5 10^3/uL (1.5-5.0); LYMPH % 20.5 % (24.0-44.0); MEAN CORPUSCULAR HEMOGLOBIN 31.3 pg (27.0-33.0); MEAN CORPUSCULAR HGB CONC 32.3 g/dl (32.0-36.5); MEAN CORPUSCULAR VOLUME 96.8 fl (80.0-96.0); MONO # 0.8 10^3/uL (0.0-0.8); MONO % 6.3 % (0.0-5.0); NEUTROPHILS # 8.6 10^3/uL (1.5-8.5); NEUTROPHILS % 71.2 % (36.0-66.0); PLATELET COUNT, AUTOMATED 355 10^3/uL (150-450); WHITE BLOOD COUNT 12.1 10^3/uL (4.0-10.0)
[2020-07-03 22:02] LABS: BLOOD UREA NITROGEN 28 MG/DL (7-18); CALCIUM LEVEL 9.4 MG/DL (8.5-10.1); CARBON DIOXIDE LEVEL 22 MEQ/L (21-32); CHLORIDE LEVEL 107 MEQ/L (98-107); CK-MB VALUE MASS 5.2 NG/ML (<3.6); CPK CREATINE PHOSPHOKINASE 103 U/L (26-192); CREATININE FOR GFR 1.59 MG/DL (0.55-1.30); FREE T4 0.81 NG/DL (0.76-1.46); GLOMERULAR FILTRATION RATE 38.1 (>58); GLUCOSE, FASTING 95 MG/DL (70-100); MAGNESIUM LEVEL 1.9 MG/DL (1.8-2.4); MB/CK RELATIVE INDEX 5.05 (< OR =4); SODIUM LEVEL 137 MEQ/L (136-145); TROPONIN I < 0.02 NG/ML (< 0.10)
[2020-07-03] MEDS ORDERED: dexameTHASONE 4 MG/ML 1ML VIAL (J1100 PER 1MG) IV ONE (23:00)
[2020-07-03] MEDS ORDERED: PROMETHAZINE INJ 25 MG/ML VIAL (J2550) IV ONE (23:00)
[2020-07-04] MEDS ORDERED: ISOVUE-370 76% 100ML VIAL As Ordered ONE (00:10)
--- NOTE | 2020-07-04 01:20 | REPVR ---
PROCEDURE INFORMATION: Exam: CT Angiography Head With Contrast CT angiography neck with contrast Exam date and time: 07/04/2020 1:05 AM Age: 40 years old Clinical indication: Pain; Headache; Additional info: FRANCOIS with no improvement, neck pain and stiffness TECHNIQUE: Imaging protocol: Computed tomography angiography of the head and neck with intravenous contrast. 3D rendering (Not supervised by radiologist): MIP and/or 3D reconstructed images were created by the technologist. Radiation optimization: All CT scans at this facility use at least one of these dose optimization techniques: automated exposure control; mA and/or kV adjustment per patient size (includes targeted exams where dose is matched to clinical indication); or iterative reconstruction. Contrast material: ISOVUE 370; Contrast volume: 100 ml; Contrast route: INTRAVENOUS (IV); COMPARISON: CT Head without contrast 07/03/2020 7:40 PM FINDINGS: There is no significant stenosis or dissection within the common or internal carotid arteries on either side. Left vertebral artery appears dominant. No significant stenosis or dissection within the vertebral arteries. There is no significant stenosis, occlusion or aneurysmal dilatation within the anterior or posterior intracranial arterial circulation. IMPRESSION: No significant stenosis or dissection within the carotid or vertebral arteries of the neck. No significant stenosis, occlusion or aneurysmal dilatation within the anterior or posterior intracranial arterial circulation. COMMENT: Reference per NASCET criteria for degree of stenosis: Mild: less than 50% stenosis. Moderate: 50-69% stenosis. Severe: 70-94% stenosis. Near occlusion: 95-99% stenosis. Electronically signed by: Juan Avendano On 07/04/2020 01:20:18 AM
[2020-07-04 02:06] VITALS: BP 168/101
--- NOTE | 2020-07-07 16:06 | ECGEPIP ---
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
== END 2020-07-04 02:36 | disposition home or self-care (01) ==
LOC: M ED 19:11
DX: I10 Essential (primary) hypertension (principal); F33.9 Major depressive disorder, recurrent, unspecified; F41.9 Anxiety disorder, unspecified; F43.10 Post-traumatic stress disorder, unspecified; F03.90 Unspecified dementia, unspecified severity, without behavioral disturbance, psychotic disturbance, mood disturbance, and anxiety; Z79.899 Other long term (current) drug therapy
CPT/HCPCS: 70450; 70496; 70498; 72125; 80048; 82550; 82553; 83735; 84439; 84443; 84484; 85025; 93005; 96361; 96374; 96375; 99284; J1100; J1200; J1885; J2405; Q9967

== ENCOUNTER → 2020-07-05 | Outpatient (CLI) | payer BC ==
[~2020-07-05] MED LIST changes: +BISO5TAB14; +CHLO125TA; +METH750T2; +SPIR-10
== END ==
LOC: M PAIN 11:32
PROVIDERS: ATTEND Nurse Practitioner Family
DX: M47.812 Spondylosis without myelopathy or radiculopathy, cervical region (principal)

== ENCOUNTER → 2020-08-02 | Outpatient (REF) | payer BC ==
[2020-08-02 14:59] LABS: ALBUMIN 3.8 GM/DL (3.2-5.2); CALCIUM LEVEL 9.7 MG/DL (8.5-10.1); CREATININE FOR GFR 1.68 MG/DL (0.55-1.30); FREE T4 0.75 NG/DL (0.76-1.46); GLOMERULAR FILTRATION RATE 35.7 (>58); PHOSPHORUS LEVEL 2.8 MG/DL (2.5-4.9); POTASSIUM SERUM 5.6 MEQ/L (3.5-5.1); THYROID STIMULATING HORMONE 1.09 uIU/ML (0.358-3.740); TOTAL 25(OH) VITAMIN D 35.8 NG/ML (30.0-100.0)
[2020-08-02 15:03] LABS: HEMATOCRIT 32.9 % (36.0-47.0); HEMOGLOBIN 10.2 g/dl (12.0-15.5); MEAN CORPUSCULAR HEMOGLOBIN 30.1 pg (27.0-33.0); MEAN CORPUSCULAR VOLUME 97.1 fl (80.0-96.0); PLATELET COUNT, AUTOMATED 334 10^3/uL (150-450); RED BLOOD COUNT 3.39 10^6/uL (4.00-5.40); WHITE BLOOD COUNT 7.3 10^3/uL (4.0-10.0)
[2020-08-02 15:31] LABS: MALB URINE SIEMENS 41.1 MG/L; MAU/CREAT RATIO 21.7 MCG/MG (0.0-30.0)
== END ==
LOC: M SFHCPLAZ 11:06
PROVIDERS: ATTEND Nurse Practitioner Family
DX: I10 Essential (primary) hypertension (principal); R53.83 Other fatigue; E55.9 Vitamin D deficiency, unspecified

== ENCOUNTER → 2020-08-05 | Outpatient (CLI) | payer BC ==
--- NOTE | 2020-08-10 08:09 | REP ---
RENAL ULTRASOUND HISTORY: Chronic kidney disease stage III. TECHNIQUE: Real-time sonographic evaluation of the kidneys is performed. FINDINGS: Kidneys are normal in size and echotexture, right kidney measuring 9.7 x 4.2 x 3.8 cm and left kidney 9.4 x 4.3 x 5.0 cm. There is no hydronephrosis bilaterally. I see no renal mass. There is mild increase in the renal sinus fat bilaterally. The urinary bladder is not distended and not evaluated. IMPRESSION: No hydronephrosis or renal mass bilaterally. MTDD
== END ==
LOC: M RAD 11:00
PROVIDERS: ATTEND Nurse Practitioner Family
DX: N18.30 Chronic kidney disease, stage 3 unspecified (principal)

== ENCOUNTER → 2020-08-05 | Outpatient (REF) | payer BC ==
[2020-08-05 14:23] LABS: CALCIUM LEVEL 9.5 MG/DL (8.5-10.1); CREATININE FOR GFR 1.88 MG/DL (0.55-1.30); GLOMERULAR FILTRATION RATE 31.4 (>58); POTASSIUM SERUM 4.9 MEQ/L (3.5-5.1)
== END ==
LOC: M PLALAB 11:40
PROVIDERS: ATTEND Nurse Practitioner Family
DX: E87.5 Hyperkalemia (principal)

== ENCOUNTER → 2020-08-13 | Outpatient (CLI) | payer BC | LOC: M LABSMTC 11:39 | PROVIDERS: ATTEND Anesthesiology | DX: Z20.828 Contact with and (suspected) exposure to other viral communicable diseases (principal) | CPT/HCPCS: C9803; U0003 ==

== ENCOUNTER → 2020-08-31 | Outpatient (CLI) | payer BC ==
--- NOTE | 2020-08-31 10:29 | REP ---
INDICATION: RENOVASCULAR HTN FILE ROOM. COMPARISON: None. TECHNIQUE: MRA renal arteries performed utilizing precontrast localizing sequences in the axial and coronal planes, followed by 3D mgky-dc-tzzelm MRA imaging with MIP reconstruction images. FINDINGS: A single main renal artery is seen bilaterally. The origin of the main right renal artery is adjacent to the origin of the superior mesenteric artery. There is very mild narrowing at the origin of both main renal arteries. However there is no evidence of significant stenosis bilaterally. The superior mesenteric artery is widely patent. There does appear to be approximately 50% narrowing just distal to the origin of the celiac artery. There is no definite mass or hydronephrosis of either kidney. Incidental note is made of an 8 mm cyst in the right lobe of the liver. A smaller subcentimeter cyst is seen more inferiorly in the right lobe of the liver. IMPRESSION: Very mild narrowing at the origin of both renal arteries. No significant renal artery stenosis. Incidental note made of approximately 50% narrowing of the proximal celiac artery. <Electronically signed by Rubén Bazan > 08/31/20 0051
== END ==
LOC: M RAD 07:35
PROVIDERS: ATTEND Internal Medicine Nephrology
DX: I15.0 Renovascular hypertension (principal)

== ENCOUNTER → 2020-09-19 | Outpatient (REF) | payer BC | LOC: M LAB REF 16:52 | PROVIDERS: ATTEND Internal Medicine Nephrology | DX: N39.0 Urinary tract infection, site not specified (principal) ==

== ENCOUNTER → 2020-11-03 | Outpatient (CLI) | payer BC | LOC: M LABSMTC 13:25 | PROVIDERS: ATTEND Anesthesiology | DX: Z20.822 Contact with and (suspected) exposure to COVID-19 (principal) ==

== ENCOUNTER → 2020-11-08 | Outpatient (CLI) | payer BC ==
[~2020-11-08] MED LIST changes: +diazePAM 5MG TABLET As Ordered ONE
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
== END ==
LOC: M PAIN 08:30
PROVIDERS: ATTEND Anesthesiology
DX: M47.812 Spondylosis without myelopathy or radiculopathy, cervical region (principal); G89.29 Other chronic pain; E55.9 Vitamin D deficiency, unspecified; Z86.59 Personal history of other mental and behavioral disorders; Z87.891 Personal history of nicotine dependence; Z79.891 Long term (current) use of opiate analgesic; Z79.899 Other long term (current) drug therapy

== ENCOUNTER → 2020-11-18 | Outpatient (CLI) | payer BC ==
[~2020-11-18] MED LIST changes: +METH-1165; -METH750T2; -diazePAM 5MG TABLET As Ordered ONE
[2020-11-18 10:39] LABS: ALBUMIN 3.7 GM/DL (3.2-5.2); ALT/SGPT 47 U/L (12-78); BILIRUBIN,TOTAL 0.2 MG/DL (0.2-1.0); BLOOD UREA NITROGEN 17 MG/DL (7-18); CALCIUM LEVEL 9.4 MG/DL (8.5-10.1); CARBON DIOXIDE LEVEL 29 MEQ/L (21-32); CHLORIDE LEVEL 100 MEQ/L (98-107); CHOLESTEROL LEVEL 259 MG/DL (<200); CHOLESTEROL RISK RATIO 3.197 (<5); CREATININE FOR GFR 0.88 MG/DL (0.55-1.30); GLOMERULAR FILTRATION RATE > 60.0 (>58); GLUCOSE, FASTING 104 MG/DL (70-100); HDL CHOLESTEROL 81 MG/DL (>40); LDL CHOLESTEROL 119 MG/DL (<100); NON-HDL-C 178 MG/DL; POTASSIUM SERUM 3.5 MEQ/L (3.5-5.1); SODIUM LEVEL 139 MEQ/L (136-145); TOTAL PROTEIN 7.4 GM/DL (6.4-8.2); TRIGLYCERIDES LEVEL 293 MG/DL (<150)
--- NOTE | 2020-11-18 15:35 | REP ---
INDICATION: RUQ ABD PAIN. COMPARISON: Comparison is made with chest CT imaging from 10/19/2019. Comparison is made with imaging from MR study from August 31, 2020.. TECHNIQUE: Right upper quadrant sonography. FINDINGS: Scanning through the right upper quadrant of the abdomen demonstrates a normal sized and walled gallbladder without evidence of stone or polyp. Common bile duct is normal measuring 0.4 cm in greatest diameter. There is a hepatic cyst in the right lobe of the liver measuring 1.0 cm in diameter. Also noted is a hyperechoic area in the right lobe 1.4 cm in diameter. This is felt to correspond with a benign hemangioma. The cyst is visible on prior MR and CT studies. The CT study shows a 2.3 cm hemangioma elsewhere in the right lobe adjacent to the intrahepatic segment of the vena cava. This area was not seen on today's sonography. Limited views of pancreas show no abnormality. There is no evidence of ascites or right renal abnormality. The right kidney measures 10.5 x 4.9 x 4.8 cm. IMPRESSION: Small benign hemangioma the right lobe of the liver. Small right lobe hepatic cyst. Otherwise negative right upper quadrant sonography. <Electronically signed by Oli De La Cruz > 11/18/20 [id number]
== END ==
LOC: M RAD 08:38
PROVIDERS: ATTEND Nurse Practitioner Family
DX: R10.11 Right upper quadrant pain (principal); I10 Essential (primary) hypertension

== ENCOUNTER → 2020-11-22 | Outpatient (CLI) | payer BC ==
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
== END ==
LOC: M PAIN 09:00
PROVIDERS: ATTEND Nurse Practitioner Family
DX: M53.82 Other specified dorsopathies, cervical region (principal); N18.30 Chronic kidney disease, stage 3 unspecified; F41.9 Anxiety disorder, unspecified; F43.10 Post-traumatic stress disorder, unspecified; I10 Essential (primary) hypertension; E55.9 Vitamin D deficiency, unspecified; L70.9 Acne, unspecified; L65.9 Nonscarring hair loss, unspecified; Z87.891 Personal history of nicotine dependence; Z79.891 Long term (current) use of opiate analgesic; Z79.899 Other long term (current) drug therapy

== ENCOUNTER → 2020-12-14 | Outpatient (CLI) | payer BC | LOC: M LABSMTC 13:03 | PROVIDERS: ATTEND Anesthesiology | DX: Z20.822 Contact with and (suspected) exposure to COVID-19 (principal) ==

== ENCOUNTER → 2020-12-19 | Outpatient (CLI) | payer BC ==
[~2020-12-19] MED LIST changes: +BUPIVACAINE HCL 0.25% 30ML VIAL As Ordered ONE; +LIDOCAINE 1% SDV 30ML VIAL As Ordered ONE
--- NOTE | 2020-12-19 15:44 | REP ---
INDICATION: BILATERAL DIAGNOSTIC CERVICAL FACET. COMPARISON: None. TECHNIQUE: C-arm views cervical spine. FINDINGS: Carroll are seen along the bilateral cervical facet joints, 3 on each side. IMPRESSION: 58 seconds fluoroscopy time utilized. <Electronically signed by Rubén Bazan > 12/19/20 [id number]
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
== END ==
LOC: M PAIN 13:20
PROVIDERS: ATTEND Anesthesiology
DX: M47.812 Spondylosis without myelopathy or radiculopathy, cervical region (principal); E55.9 Vitamin D deficiency, unspecified; Z86.59 Personal history of other mental and behavioral disorders; Z87.891 Personal history of nicotine dependence; Z88.6 Allergy status to analgesic agent; Z88.8 Allergy status to other drugs, medicaments and biological substances; Z79.891 Long term (current) use of opiate analgesic; Z79.899 Other long term (current) drug therapy

== ENCOUNTER → 2021-01-02 | Outpatient (CLI) | payer BC ==
[~2021-01-02] MED LIST changes: -BUPIVACAINE HCL 0.25% 30ML VIAL As Ordered ONE; -LIDOCAINE 1% SDV 30ML VIAL As Ordered ONE
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
== END ==
LOC: M PAIN 10:30
PROVIDERS: ATTEND Nurse Practitioner Family
DX: G89.29 Other chronic pain (principal); M53.82 Other specified dorsopathies, cervical region; F41.9 Anxiety disorder, unspecified; F43.10 Post-traumatic stress disorder, unspecified; I10 Essential (primary) hypertension; E55.9 Vitamin D deficiency, unspecified; N18.30 Chronic kidney disease, stage 3 unspecified; L65.9 Nonscarring hair loss, unspecified; Z87.891 Personal history of nicotine dependence; Z79.899 Other long term (current) drug therapy; Z88.6 Allergy status to analgesic agent; Z88.8 Allergy status to other drugs, medicaments and biological substances

== ENCOUNTER → 2021-01-25 | Outpatient (CLI) | payer BC | LOC: M LABSMTC 11:47 | PROVIDERS: ATTEND Anesthesiology | DX: Z20.822 Contact with and (suspected) exposure to COVID-19 (principal) ==

== ENCOUNTER → 2021-01-30 | Outpatient (CLI) | payer BC ==
[~2021-01-30] MED LIST changes: +BUPIVACAINE HCL 0.25% 30ML VIAL As Ordered ONE; +ISOVUE-M 300 61% 15ML VIAL As Ordered ONE; +LIDOCAINE 1% SDV 30ML VIAL As Ordered ONE; +TRIAMCINOLONE ACETONIDE SUSP 40 MG/ML VIAL (J3301) As Ordered ONE; +diazePAM 5MG TABLET As Ordered ONE; +oxyCODONE 5MG TAB As Ordered ONE
--- NOTE | 2021-01-30 18:39 | REP ---
INDICATION: BILATERAL THERAPEUTIC CERVICAL FACET BLOCK. COMPARISON: 12/19/2020. TECHNIQUE: Single C-arm view cervical spine. FINDINGS: [place] are seen along the bilateral cervical facet joints. IMPRESSION: 21 seconds fluoroscopy time utilized. <Electronically signed by Rubén Bazan > 01/30/21 [id number]
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
== END ==
LOC: M PAIN 13:20
PROVIDERS: ATTEND Anesthesiology
DX: M47.812 Spondylosis without myelopathy or radiculopathy, cervical region (principal); F41.9 Anxiety disorder, unspecified; F43.10 Post-traumatic stress disorder, unspecified; I12.9 Hypertensive chronic kidney disease with stage 1 through stage 4 chronic kidney disease, or unspecified chronic kidney disease; E55.9 Vitamin D deficiency, unspecified; N18.30 Chronic kidney disease, stage 3 unspecified; L65.9 Nonscarring hair loss, unspecified; L70.9 Acne, unspecified; M75.51 Bursitis of right shoulder; M75.52 Bursitis of left shoulder; Z87.891 Personal history of nicotine dependence; Z79.891 Long term (current) use of opiate analgesic; Z79.899 Other long term (current) drug therapy; Z88.6 Allergy status to analgesic agent; Z88.8 Allergy status to other drugs, medicaments and biological substances
CPT/HCPCS: 64490; 64491; J3301

== ENCOUNTER → 2021-02-10 | Outpatient (CLI) | payer BC ==
[~2021-02-10] MED LIST changes: -BUPIVACAINE HCL 0.25% 30ML VIAL As Ordered ONE; -ISOVUE-M 300 61% 15ML VIAL As Ordered ONE; -LIDOCAINE 1% SDV 30ML VIAL As Ordered ONE; -TRIAMCINOLONE ACETONIDE SUSP 40 MG/ML VIAL (J3301) As Ordered ONE; -diazePAM 5MG TABLET As Ordered ONE; -oxyCODONE 5MG TAB As Ordered ONE
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
== END ==
LOC: M PAIN 10:30
PROVIDERS: ATTEND Nurse Practitioner Family
DX: G89.29 Other chronic pain (principal); M79.18 Myalgia, other site; F41.9 Anxiety disorder, unspecified; F43.10 Post-traumatic stress disorder, unspecified; I12.9 Hypertensive chronic kidney disease with stage 1 through stage 4 chronic kidney disease, or unspecified chronic kidney disease; L70.9 Acne, unspecified; E55.9 Vitamin D deficiency, unspecified; N18.30 Chronic kidney disease, stage 3 unspecified; L65.9 Nonscarring hair loss, unspecified; Z87.891 Personal history of nicotine dependence; Z79.899 Other long term (current) drug therapy; Z88.6 Allergy status to analgesic agent; Z88.8 Allergy status to other drugs, medicaments and biological substances

== ENCOUNTER → 2021-02-25 | Outpatient (CLI) | payer BC | LOC: M LABSMTC 11:31 | PROVIDERS: ATTEND Anesthesiology | DX: Z11.52 Encounter for screening for COVID-19 (principal) ==

== ENCOUNTER → 2021-02-28 | Outpatient (REF) | payer BC ==
[2021-02-28 12:07] LABS: ALBUMIN 3.7 GM/DL (3.2-5.2); ALT/SGPT 57 U/L (12-78); BILIRUBIN,TOTAL 0.4 MG/DL (0.2-1.0); BLOOD UREA NITROGEN 7 MG/DL (7-18); CALCIUM LEVEL 9.9 MG/DL (8.5-10.1); CARBON DIOXIDE LEVEL 32 MEQ/L (21-32); CHLORIDE LEVEL 100 MEQ/L (98-107); CHOLESTEROL LEVEL 244 MG/DL (<200); CHOLESTEROL RISK RATIO 2.939 (<5); CREATININE FOR GFR 0.74 MG/DL (0.55-1.30); GLOMERULAR FILTRATION RATE > 60.0 (>58); GLUCOSE, FASTING 101 MG/DL (70-100); HDL CHOLESTEROL 83 MG/DL (>40); LDL CHOLESTEROL 128 MG/DL (<100); NON-HDL-C 161 MG/DL; POTASSIUM SERUM 3.9 MEQ/L (3.5-5.1); SODIUM LEVEL 138 MEQ/L (136-145); TOTAL PROTEIN 7.2 GM/DL (6.4-8.2); TRIGLYCERIDES LEVEL 165 MG/DL (<150)
== END ==
LOC: M PLALAB 10:55
PROVIDERS: ATTEND Nurse Practitioner Family
DX: E78.00 Pure hypercholesterolemia, unspecified (principal)

== ENCOUNTER → 2021-03-02 | Outpatient (CLI) | payer BC ==
[~2021-03-02] MED LIST changes: +BUPIVACAINE HCL 0.25% 10ML VIAL As Ordered ONE; +BUPIVACAINE HCL 0.25% 30ML VIAL As Ordered ONE; +TRIAMCINOLONE ACETONIDE SUSP 40 MG/ML VIAL (J3301) As Ordered ONE; +diazePAM 5MG TABLET As Ordered ONE; +oxyCODONE 5MG TAB As Ordered ONE
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
== END ==
LOC: M PAIN 10:40
PROVIDERS: ATTEND Anesthesiology
DX: M79.18 Myalgia, other site (principal); F41.9 Anxiety disorder, unspecified; F43.10 Post-traumatic stress disorder, unspecified; I10 Essential (primary) hypertension; L70.9 Acne, unspecified; E55.9 Vitamin D deficiency, unspecified; N18.30 Chronic kidney disease, stage 3 unspecified; L65.9 Nonscarring hair loss, unspecified; M75.51 Bursitis of right shoulder; M75.52 Bursitis of left shoulder; Z87.891 Personal history of nicotine dependence; Z79.891 Long term (current) use of opiate analgesic; Z79.899 Other long term (current) drug therapy; Z88.6 Allergy status to analgesic agent; Z88.8 Allergy status to other drugs, medicaments and biological substances
CPT/HCPCS: 20552; J3301

== ENCOUNTER → 2021-03-16 | Outpatient (CLI) | payer BC ==
[~2021-03-16] MED LIST changes: -BUPIVACAINE HCL 0.25% 10ML VIAL As Ordered ONE; -BUPIVACAINE HCL 0.25% 30ML VIAL As Ordered ONE; -TRIAMCINOLONE ACETONIDE SUSP 40 MG/ML VIAL (J3301) As Ordered ONE; -diazePAM 5MG TABLET As Ordered ONE; -oxyCODONE 5MG TAB As Ordered ONE
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
== END ==
LOC: M PAIN 10:30
PROVIDERS: ATTEND Nurse Practitioner Family
DX: G89.29 Other chronic pain (principal); M79.18 Myalgia, other site; F41.9 Anxiety disorder, unspecified; F43.10 Post-traumatic stress disorder, unspecified; I12.9 Hypertensive chronic kidney disease with stage 1 through stage 4 chronic kidney disease, or unspecified chronic kidney disease; L70.9 Acne, unspecified; E55.9 Vitamin D deficiency, unspecified; N18.30 Chronic kidney disease, stage 3 unspecified; L65.9 Nonscarring hair loss, unspecified; M75.51 Bursitis of right shoulder; M75.52 Bursitis of left shoulder; Z87.891 Personal history of nicotine dependence; Z79.891 Long term (current) use of opiate analgesic; Z79.899 Other long term (current) drug therapy; Z88.6 Allergy status to analgesic agent; Z88.8 Allergy status to other drugs, medicaments and biological substances

== ENCOUNTER → 2021-05-09 | Outpatient (CLI) | payer BC | LOC: M PLAIMG 10:26 | PROVIDERS: ATTEND Family Medicine | DX: R07.81 Pleurodynia (principal) ==

== ENCOUNTER → 2021-05-15 | Outpatient (REF) | payer BC | LOC: M LAB REF 17:12 | PROVIDERS: ATTEND Internal Medicine Nephrology | DX: I12.9 Hypertensive chronic kidney disease with stage 1 through stage 4 chronic kidney disease, or unspecified chronic kidney disease (principal); E83.42 Hypomagnesemia ==

== ENCOUNTER → 2021-06-16 | Outpatient (CLI) | payer BC | LOC: M PAIN 10:30 | PROVIDERS: ATTEND Anesthesiology | DX: M79.18 Myalgia, other site (principal); M54.2 Cervicalgia; M50.10 Cervical disc disorder with radiculopathy, unspecified cervical region; F41.9 Anxiety disorder, unspecified; F43.10 Post-traumatic stress disorder, unspecified; L70.9 Acne, unspecified; E55.9 Vitamin D deficiency, unspecified; N18.30 Chronic kidney disease, stage 3 unspecified; L65.9 Nonscarring hair loss, unspecified; M75.51 Bursitis of right shoulder; M75.52 Bursitis of left shoulder; Z79.891 Long term (current) use of opiate analgesic; Z79.899 Other long term (current) drug therapy; Z87.891 Personal history of nicotine dependence; Z88.6 Allergy status to analgesic agent; Z88.8 Allergy status to other drugs, medicaments and biological substances ==

== ENCOUNTER → 2021-07-12 | Outpatient (CLI) | payer BC | LOC: M LABSMTC 11:46 | PROVIDERS: ATTEND Anesthesiology | DX: Z11.52 Encounter for screening for COVID-19 (principal) ==

== ENCOUNTER → 2021-07-17 | Outpatient (CLI) | payer BC ==
[~2021-07-17] MED LIST changes: +BUPIVACAINE HCL 0.25% 10ML VIAL As Ordered ONE; +BUPIVACAINE HCL 0.25% 30ML VIAL As Ordered ONE; +TRIAMCINOLONE ACETONIDE SUSP 40 MG/ML VIAL (J3301) As Ordered ONE; +diazePAM 5MG TABLET As Ordered ONE; +oxyCODONE 5MG TAB As Ordered ONE
== END ==
LOC: M PAIN 14:00
PROVIDERS: ATTEND Anesthesiology
DX: M79.18 Myalgia, other site (principal); F41.9 Anxiety disorder, unspecified; F43.10 Post-traumatic stress disorder, unspecified; I12.9 Hypertensive chronic kidney disease with stage 1 through stage 4 chronic kidney disease, or unspecified chronic kidney disease; N18.30 Chronic kidney disease, stage 3 unspecified; E55.9 Vitamin D deficiency, unspecified; L70.9 Acne, unspecified; Z87.891 Personal history of nicotine dependence; Z79.899 Other long term (current) drug therapy; Z79.891 Long term (current) use of opiate analgesic; Z88.6 Allergy status to analgesic agent; Z88.8 Allergy status to other drugs, medicaments and biological substances
CPT/HCPCS: 20553; J3301

== ENCOUNTER → 2021-08-02 | Outpatient (CLI) | payer BC ==
[~2021-08-02] MED LIST changes: -BUPIVACAINE HCL 0.25% 10ML VIAL As Ordered ONE; -BUPIVACAINE HCL 0.25% 30ML VIAL As Ordered ONE; -TRIAMCINOLONE ACETONIDE SUSP 40 MG/ML VIAL (J3301) As Ordered ONE; -diazePAM 5MG TABLET As Ordered ONE; -oxyCODONE 5MG TAB As Ordered ONE
--- NOTE | 2021-08-02 11:24 | REP ---
INDICATION: DETERMINE PROCEDURE. COMPARISON: None. TECHNIQUE: Three views. 11.6 seconds of fluoroscopy time is reported. FINDINGS: A sequence of 3 last image hold fluoroscopically obtained spot radiographs of the cervical spine document needle position. IMPRESSION: Procedural imaging. <Electronically signed by Oli De La Cruz > 08/02/21 [id number]
== END ==
LOC: M PAIN 10:00
PROVIDERS: ATTEND Anesthesiology
DX: M47.812 Spondylosis without myelopathy or radiculopathy, cervical region (principal); G89.29 Other chronic pain; M48.02 Spinal stenosis, cervical region; M43.12 Spondylolisthesis, cervical region; E55.9 Vitamin D deficiency, unspecified; Z86.59 Personal history of other mental and behavioral disorders; Z87.891 Personal history of nicotine dependence; Z88.6 Allergy status to analgesic agent; Z88.8 Allergy status to other drugs, medicaments and biological substances; Z79.891 Long term (current) use of opiate analgesic; Z79.899 Other long term (current) drug therapy

== ENCOUNTER → 2021-08-08 | Outpatient (CLI) | payer BC ==
[2021-08-08 15:57] LABS: ALBUMIN 3.6 GM/DL (3.2-5.2); ALT/SGPT 42 U/L (12-78); BILIRUBIN,TOTAL 0.3 MG/DL (0.2-1.0); BLOOD UREA NITROGEN 12 MG/DL (7-18); CALCIUM LEVEL 9.2 MG/DL (8.5-10.1); CARBON DIOXIDE LEVEL 30 MEQ/L (21-32); CHLORIDE LEVEL 99 MEQ/L (98-107); CREATININE FOR GFR 0.86 MG/DL (0.55-1.30); GLOMERULAR FILTRATION RATE > 60.0 (>58); GLUCOSE, FASTING 92 MG/DL (70-100); POTASSIUM SERUM 3.5 MEQ/L (3.5-5.1); SODIUM LEVEL 137 MEQ/L (136-145); TOTAL PROTEIN 7.1 GM/DL (6.4-8.2)
[2021-08-08 16:07] LABS: TOTAL 25(OH) VITAMIN D 26.6 NG/ML (30.0-100.0)
== END ==
LOC: M PLALAB 13:10
PROVIDERS: ATTEND Nurse Practitioner Family
DX: I12.9 Hypertensive chronic kidney disease with stage 1 through stage 4 chronic kidney disease, or unspecified chronic kidney disease (principal)

== ENCOUNTER → 2021-09-15 | Outpatient (REF) | payer BC | LOC: M SFHCPLAZ 13:12 | PROVIDERS: ATTEND Physician Assistant | DX: R09.89 Other specified symptoms and signs involving the circulatory and respiratory systems (principal) ==

== ENCOUNTER → 2021-11-15 | Outpatient (REF) | payer BC | LOC: M LAB REF 17:18 | PROVIDERS: ATTEND Internal Medicine Nephrology | DX: I12.9 Hypertensive chronic kidney disease with stage 1 through stage 4 chronic kidney disease, or unspecified chronic kidney disease (principal); E83.42 Hypomagnesemia ==

== ENCOUNTER → 2021-11-24 | Outpatient (CLI) | payer BC | LOC: M PAIN 10:30 | PROVIDERS: ATTEND Anesthesiology | DX: M47.812 Spondylosis without myelopathy or radiculopathy, cervical region (principal); F41.9 Anxiety disorder, unspecified; F43.10 Post-traumatic stress disorder, unspecified; I12.9 Hypertensive chronic kidney disease with stage 1 through stage 4 chronic kidney disease, or unspecified chronic kidney disease; E55.9 Vitamin D deficiency, unspecified; L70.9 Acne, unspecified; N18.30 Chronic kidney disease, stage 3 unspecified; L65.9 Nonscarring hair loss, unspecified; Z87.891 Personal history of nicotine dependence; Z79.899 Other long term (current) drug therapy; Z79.891 Long term (current) use of opiate analgesic; Z88.6 Allergy status to analgesic agent; Z88.8 Allergy status to other drugs, medicaments and biological substances ==

== ENCOUNTER → 2022-05-24 | Outpatient (CLI) | payer BC | LOC: M LABSMTC 11:15 | PROVIDERS: ATTEND Anesthesiology | DX: Z20.822 Contact with and (suspected) exposure to COVID-19 (principal) ==

== ENCOUNTER → 2022-05-28 | Outpatient (CLI) | payer BC ==
[~2022-05-28] MED LIST changes: +BUPIVACAINE HCL 0.25% 30ML VIAL As Ordered ONE; +ISOVUE-M 300 61% 15ML VIAL As Ordered ONE; +LIDOCAINE 1% SDV 30ML VIAL As Ordered ONE
== END ==
LOC: M PAIN 13:30
PROVIDERS: ATTEND Anesthesiology
DX: M47.812 Spondylosis without myelopathy or radiculopathy, cervical region (principal); F41.9 Anxiety disorder, unspecified; F43.10 Post-traumatic stress disorder, unspecified; M54.2 Cervicalgia; I12.9 Hypertensive chronic kidney disease with stage 1 through stage 4 chronic kidney disease, or unspecified chronic kidney disease; M75.52 Bursitis of left shoulder; M75.51 Bursitis of right shoulder; L70.9 Acne, unspecified; E55.9 Vitamin D deficiency, unspecified; N18.30 Chronic kidney disease, stage 3 unspecified; L65.9 Nonscarring hair loss, unspecified; Z88.8 Allergy status to other drugs, medicaments and biological substances; Z79.891 Long term (current) use of opiate analgesic; Z79.899 Other long term (current) drug therapy; Z87.891 Personal history of nicotine dependence
CPT/HCPCS: 64493; 64494; Q9967

== ENCOUNTER → 2022-07-11 | Outpatient (CLI) | payer BC ==
[~2022-07-11] MED LIST changes: -BUPIVACAINE HCL 0.25% 30ML VIAL As Ordered ONE; -ISOVUE-M 300 61% 15ML VIAL As Ordered ONE; -LIDOCAINE 1% SDV 30ML VIAL As Ordered ONE
[2022-07-11 16:30] LABS: ALBUMIN 3.8 GM/DL (3.2-5.2); ALT/SGPT 58 U/L (12-78); BILIRUBIN,TOTAL 0.4 MG/DL (0.2-1.0); BLOOD UREA NITROGEN 10 MG/DL (7-18); CALCIUM LEVEL 9.2 MG/DL (8.5-10.1); CARBON DIOXIDE LEVEL 30 MEQ/L (21-32); CHLORIDE LEVEL 98 MEQ/L (98-107); CHOLESTEROL LEVEL 251 MG/DL (<200); CHOLESTEROL RISK RATIO 3.861 (<5); CREATININE FOR GFR 0.78 MG/DL (0.55-1.30); GLOMERULAR FILTRATION RATE > 60.0 (>58); GLUCOSE, FASTING 88 MG/DL (70-100); HDL CHOLESTEROL 65 MG/DL (>40); LDL CHOLESTEROL 140 MG/DL (<100); NON-HDL-C 186 MG/DL; POTASSIUM SERUM 3.7 MEQ/L (3.5-5.1); SODIUM LEVEL 133 MEQ/L (136-145); TOTAL PROTEIN 7.4 GM/DL (6.4-8.2); TRIGLYCERIDES LEVEL 228 MG/DL (<150)
[2022-07-11 16:59] LABS: TOTAL 25(OH) VITAMIN D 29.7 NG/ML (30.0-100.0)
== END ==
LOC: M PLALAB 13:06
PROVIDERS: ATTEND Nurse Practitioner Adult Health
DX: I12.9 Hypertensive chronic kidney disease with stage 1 through stage 4 chronic kidney disease, or unspecified chronic kidney disease (principal); N18.9 Chronic kidney disease, unspecified

== ENCOUNTER → 2022-07-20 | Outpatient (CLI) | payer BC | LOC: M PAIN 10:15 | PROVIDERS: ATTEND Anesthesiology | DX: G89.29 Other chronic pain (principal); M47.812 Spondylosis without myelopathy or radiculopathy, cervical region; M54.2 Cervicalgia; F41.9 Anxiety disorder, unspecified; F43.10 Post-traumatic stress disorder, unspecified; I12.9 Hypertensive chronic kidney disease with stage 1 through stage 4 chronic kidney disease, or unspecified chronic kidney disease; M75.51 Bursitis of right shoulder; M75.52 Bursitis of left shoulder; L70.9 Acne, unspecified; E55.9 Vitamin D deficiency, unspecified; N18.30 Chronic kidney disease, stage 3 unspecified; L65.9 Nonscarring hair loss, unspecified; Z87.891 Personal history of nicotine dependence; Z79.899 Other long term (current) drug therapy; Z79.891 Long term (current) use of opiate analgesic; Z88.6 Allergy status to analgesic agent; Z88.8 Allergy status to other drugs, medicaments and biological substances ==

== ENCOUNTER → 2022-12-24 | Outpatient (CLI) | payer BC | LOC: M LABSMTC 11:25 | PROVIDERS: ATTEND Anesthesiology | DX: Z01.812 Encounter for preprocedural laboratory examination (principal) ==

== ENCOUNTER → 2023-02-15 | Outpatient (CLI) | payer BC ==
[~2023-02-15] MED LIST changes: +BUPIVACAINE HCL 0.25% 30ML VIAL As Ordered ONE; +ISOVUE-M 300 61% 15ML VIAL As Ordered ONE; +LIDOCAINE 1% SDV 30ML VIAL As Ordered ONE
== END ==
LOC: M PAIN 13:30
PROVIDERS: ATTEND Anesthesiology
DX: M47.812 Spondylosis without myelopathy or radiculopathy, cervical region (principal); F41.9 Anxiety disorder, unspecified; F43.10 Post-traumatic stress disorder, unspecified; E55.9 Vitamin D deficiency, unspecified; N18.30 Chronic kidney disease, stage 3 unspecified; L70.9 Acne, unspecified; M75.51 Bursitis of right shoulder; M75.52 Bursitis of left shoulder; Z87.891 Personal history of nicotine dependence; Z79.899 Other long term (current) drug therapy; Z88.6 Allergy status to analgesic agent; Z88.8 Allergy status to other drugs, medicaments and biological substances
CPT/HCPCS: 64490; 64491; Q9967; S0020

== ENCOUNTER → 2023-04-04 | Outpatient (CLI) | payer BC ==
[~2023-04-04] MED LIST changes: -BUPIVACAINE HCL 0.25% 30ML VIAL As Ordered ONE; -ISOVUE-M 300 61% 15ML VIAL As Ordered ONE; -LIDOCAINE 1% SDV 30ML VIAL As Ordered ONE
== END ==
LOC: M PAIN 11:15
PROVIDERS: ATTEND Nurse Practitioner Family
DX: M47.812 Spondylosis without myelopathy or radiculopathy, cervical region (principal); G89.29 Other chronic pain; F43.10 Post-traumatic stress disorder, unspecified; I12.9 Hypertensive chronic kidney disease with stage 1 through stage 4 chronic kidney disease, or unspecified chronic kidney disease; M75.51 Bursitis of right shoulder; M75.52 Bursitis of left shoulder; E55.9 Vitamin D deficiency, unspecified; N18.30 Chronic kidney disease, stage 3 unspecified; Z87.891 Personal history of nicotine dependence; Z79.891 Long term (current) use of opiate analgesic; Z79.899 Other long term (current) drug therapy; Z88.8 Allergy status to other drugs, medicaments and biological substances; Z88.6 Allergy status to analgesic agent

== ENCOUNTER → 2023-07-09 | Outpatient (CLI) | payer BC ==
[2023-07-09 08:12] LABS: CHOLESTEROL RISK RATIO 4.24 (<5); HDL CHOLESTEROL 51.3 MG/DL (>40); LDL CHOLESTEROL 111.5 MG/DL (<100); NON-HDL-C 166.7 MG/DL; THYROID STIMULATING HORMONE 1.936 uIU/ML (0.55-4.78)
== END ==
LOC: M LAB 07:23
PROVIDERS: ATTEND Nurse Practitioner Adult Health
DX: E78.2 Mixed hyperlipidemia (principal); Z13.29 Encounter for screening for other suspected endocrine disorder

== ENCOUNTER → 2023-08-09 | Outpatient (CLI) | payer BC ==
[~2023-08-09] MED LIST changes: +LIDOCAINE 1% SDV 30ML VIAL As Ordered ONE; +dexAMETHasone 10MG/1ML VIAL PRES.FREE As Ordered ONE; +diazePAM 5MG TABLET As Ordered ONE; +oxyCODONE 5MG TAB As Ordered ONE
== END ==
LOC: M PAIN 14:00
PROVIDERS: ATTEND Anesthesiology
DX: M47.812 Spondylosis without myelopathy or radiculopathy, cervical region (principal); F41.9 Anxiety disorder, unspecified; F43.10 Post-traumatic stress disorder, unspecified; I12.9 Hypertensive chronic kidney disease with stage 1 through stage 4 chronic kidney disease, or unspecified chronic kidney disease; L70.9 Acne, unspecified; E55.9 Vitamin D deficiency, unspecified; N18.30 Chronic kidney disease, stage 3 unspecified; M75.51 Bursitis of right shoulder; M75.52 Bursitis of left shoulder; Z87.891 Personal history of nicotine dependence; Z79.891 Long term (current) use of opiate analgesic; Z79.899 Other long term (current) drug therapy; Z88.6 Allergy status to analgesic agent; Z88.8 Allergy status to other drugs, medicaments and biological substances
CPT/HCPCS: 64633; 64634; J0665; J1100

== ENCOUNTER → 2023-09-02 | Outpatient (CLI) | payer BC ==
[~2023-09-02] MED LIST changes: -LIDOCAINE 1% SDV 30ML VIAL As Ordered ONE; -dexAMETHasone 10MG/1ML VIAL PRES.FREE As Ordered ONE; -diazePAM 5MG TABLET As Ordered ONE; -oxyCODONE 5MG TAB As Ordered ONE
== END ==
LOC: M PAIN 15:00
PROVIDERS: ATTEND Nurse Practitioner Family
DX: G89.29 Other chronic pain (principal); M47.812 Spondylosis without myelopathy or radiculopathy, cervical region; F41.9 Anxiety disorder, unspecified; F43.10 Post-traumatic stress disorder, unspecified; I12.9 Hypertensive chronic kidney disease with stage 1 through stage 4 chronic kidney disease, or unspecified chronic kidney disease; M75.51 Bursitis of right shoulder; M75.52 Bursitis of left shoulder; L70.9 Acne, unspecified; E55.9 Vitamin D deficiency, unspecified; N18.30 Chronic kidney disease, stage 3 unspecified; L65.9 Nonscarring hair loss, unspecified; Z87.891 Personal history of nicotine dependence; Z79.891 Long term (current) use of opiate analgesic; Z79.899 Other long term (current) drug therapy; Z88.6 Allergy status to analgesic agent; Z88.8 Allergy status to other drugs, medicaments and biological substances

== ENCOUNTER → 2023-10-29 | Outpatient (CLI) | payer BC | LOC: M PAIN 17:30 | PROVIDERS: ATTEND Nurse Practitioner Family | DX: G89.29 Other chronic pain (principal); M47.812 Spondylosis without myelopathy or radiculopathy, cervical region; M54.2 Cervicalgia; I12.9 Hypertensive chronic kidney disease with stage 1 through stage 4 chronic kidney disease, or unspecified chronic kidney disease; N18.30 Chronic kidney disease, stage 3 unspecified; Z87.891 Personal history of nicotine dependence; Z79.891 Long term (current) use of opiate analgesic; Z79.899 Other long term (current) drug therapy; Z88.6 Allergy status to analgesic agent; Z88.8 Allergy status to other drugs, medicaments and biological substances ==

== ENCOUNTER → 2024-04-08 | Outpatient (CLI) | payer BC ==
[2024-04-08 09:25] LABS: FREE T4 1.04 NG/DL (0.89-1.76)
[2024-04-08 09:26] LABS: ALBUMIN 3.6 G/DL (3.2-5.2); ALKALINE PHOSPHATASE 91 U/L (46-116); ALT/SGPT 67 U/L (7.0-40); AST/SGOT 49 U/L (<34); BILIRUBIN,TOTAL 0.2 MG/DL (0.3-1.2); BLOOD UREA NITROGEN 9 MG/DL (9-23); CALCIUM LEVEL 9.9 MG/DL (8.5-10.1); CARBON DIOXIDE LEVEL 30 MMOL/L (20-31); CHLORIDE LEVEL 100 MMOL/L (98-107); CHOLESTEROL LEVEL 200 MG/DL (<200); CHOLESTEROL RISK RATIO 3.09 (<5); CREATININE FOR GFR 0.94 MG/DL (0.55-1.30); GLOMERULAR FILTRATION RATE > 60.0 (>58); GLUCOSE, FASTING 114 MG/DL (60-100); HDL CHOLESTEROL 64.7 MG/DL (>40); LDL CHOLESTEROL 96.7 MG/DL (<100); NON-HDL-C 135.3 MG/DL; POTASSIUM SERUM 4.6 MMOL/L (3.5-5.1); SODIUM LEVEL 137 MMOL/L (136-145); TOTAL PROTEIN 6.9 G/DL (5.7-8.2); TRIGLYCERIDES LEVEL 193 MG/DL (<150)
[2024-04-08 09:28] LABS: HEMOGLOBIN A1c 5.6 % (4.0-6.0)
== END ==
LOC: M LAB 07:46
PROVIDERS: ATTEND Nurse Practitioner Adult Health
DX: Z00.00 Encounter for general adult medical examination without abnormal findings (principal); E78.2 Mixed hyperlipidemia

== ENCOUNTER → 2025-01-18 | Outpatient (CLI) | payer OTHER ==
[2025-01-18 08:50] LABS: BASO % 0.5 % (0.0-1.0); EOS # 0.4 10^3/uL (0.0-0.5); EOS % 4.9 % (0.0-3.0); HEMATOCRIT 38.1 % (36.0-47.0); HEMOGLOBIN 12.4 g/dl (12.0-15.5); LYMPH # 3.3 10^3/uL (1.5-5.0); LYMPH % 43.8 % (24.0-44.0); MEAN CORPUSCULAR HEMOGLOBIN 33.2 pg (27.0-33.0); MEAN CORPUSCULAR HGB CONC 32.5 g/dl (32.0-36.5); MEAN CORPUSCULAR VOLUME 101.9 fl (80.0-96.0); MONO # 0.6 10^3/uL (0.0-0.8); MONO % 7.5 % (2.0-8.0); NEUTROPHILS # 3.3 10^3/uL (1.5-8.5); NEUTROPHILS % 42.8 % (36.0-66.0); PLATELET COUNT, AUTOMATED 321 10^3/uL (150-450); RED BLOOD COUNT 3.74 10^6/uL (4.00-5.40); WHITE BLOOD COUNT 7.6 10^3/uL (4.0-10.0)
[2025-01-18 09:31] LABS: ALBUMIN 3.6 G/DL (3.2-5.2); BILIRUBIN,TOTAL 0.3 MG/DL (0.3-1.2); CALCIUM LEVEL 9.4 MG/DL (8.5-10.1); CHOLESTEROL RISK RATIO 3.77 (<5); CREATININE FOR GFR 1.49 MG/DL (0.55-1.30); GLOMERULAR FILTRATION RATE 40.3 (>58); HDL CHOLESTEROL 62.2 MG/DL (>40); MAGNESIUM LEVEL 1.8 MG/DL (1.8-2.4); NON-HDL-C 172.8 MG/DL; PHOSPHORUS LEVEL 5.1 MG/DL (2.5-4.9); POTASSIUM SERUM 4.2 MMOL/L (3.5-5.1); TOTAL PROTEIN 7.3 G/DL (5.7-8.2)
== END ==
LOC: M LAB 08:11
PROVIDERS: ATTEND Nurse Practitioner Adult Health
DX: I12.9 Hypertensive chronic kidney disease with stage 1 through stage 4 chronic kidney disease, or unspecified chronic kidney disease (principal)